=== PATIENT | female | born 1995 | race Caucasian/White ===

== ENCOUNTER 2021-10-07 13:25 | Emergency (ER) | payer MEDICAID, SELFPAY ==
[2021-10-07 13:40] VITALS: BP 107/76; PULSE 102; RESP 18; TEMP 36.9; O2SAT 97; BMI 29.9
--- NOTE | 2021-10-07 14:03 | HMH.EDUTC ---
[facility] [place] Clinical Impression: UTI (urinary tract infection) Qualifiers: Urinary tract infection type: site unspecified Hematuria presence: without hematuria Qualified Code(s): N39.0 - Urinary tract infection, site not specified Disposition: Home, Self-Care Condition on Discharge: Good Instructions: DI for Urinary Tract Infection (UTI) Additional Instructions: *Increase fluids. Water not Soda or Tea *Start antibiotic immediately and be sure to take as ordered for the FULL length of time although you should start to see improvement over the next 48 hours *Pyridium as needed Remember this medication will turn your urine [place]. This is normal but it will stain what ever it gets on *You should not use Pyridium for more than 48 hours. If so , follow up with your primary physician to review urine culture and ensure that antibiotic is adequate for infection *Be SURE to follow up anytime for new or worsening symptoms with your family doctor. AND in 48 hours for urine culture results with your family doctor, if you do not have a doctor then you may call back to the [facility] for urine culture results and further treatment. We do recommend that you choose and establish care with a Primary Care Physician. AND follow up with them in 10-14 days to repeat UA to ensure infection is resolved and blood no longer present *Be sure to let your PCP know that we sent urine cultures from the [facility] so they can follow up to ensure that you area the on the correct antibiotic Call your doctor office and make appointment for 48 hours (2 days from today) to follow up and get the results of your urine culture and further treatment Prescriptions: Sulfamethoxazole/Trimethoprim [Bactrim DS tablet] 1 each PO BID 3 Days #6 tab Transmission Status: Pending to [facility] #[id number] Phenazopyridine HCl [Pyridium 200mg Tablet] 200 pow PO TID #6 tab Transmission Status: Pending to [facility] #[id number] Referrals: Provider,Referral, MD [Primary Care Provider] - As needed Time of Disposition: 14:16 Medical Decision Making - Byron Inquiry Pt receiving controlled substance: No Byron was queried for this patient: No Vital Signs: 10/07/21 13:40 Temperature 98.4 F Temperature Source Oral Pulse Rate [Right Brachial] 102 H Respiratory Rate 18 Blood Pressure [Right Arm] 107/76 L Blood Pressure Mean [Right Arm] 86 Blood Pressure Source [Right Arm] Automatic Cuff Blood Pressure Position [Right Arm] Sitting 02 Sat by Pulse Oximetry 97 Oxygen Delivery Method Room Air - Lab Data Lab results reviewed: Yes: I reviewed the patient's lab results. [facility] [place] - General Stated complaint: possible bladder infection Time Seen by Provider: 10/07/21 14:03 Mode of Arrival: Ambulatory Source of Information: Patient Limitations: No Limitations Description of Symptoms (Recalled from Triage Doc. by RN): PATIENT C/O LOWER BACK AND BLADDER PAIN X 4 DAYS HEENT Symptoms (Recalled from RN notes): No Resp Symptoms (Recalled from RN notes): No Skin Symptoms (Recalled from RN notes): No MS Symptoms (Recalled from RN notes): No Functional Status (Recalled from RN notes): WNL - History of Present Illness Provider Complaint: Patient states that she has been having pain in her left low back area and pressure and burning with urination on and off and feeling of urgency and frequency State that she does get frequent UTI and feels like it does when she has one so she came in to get checked - Related Data Previous Rx's Medication Instructions Recorded Phenazopyridine HCl [Pyridium 200 pow PO TID #6 tab 10/07/21 200mg Tablet] Sulfamethoxazole/Trimethoprim 1 each PO BID 3 Days #6 tab 10/07/21 [Bactrim DS tablet] Allergies Allergy/AdvReac Type Severity Reaction Status Date / Time Penicillins Allergy Verified 10/07/21 13:54 - Worker's Comp Is this a Worker's Comp case?: No [facility] History - Hepatitis A Screen Attestation statement:: This patie
[2021-10-07 14:19] VITALS: BP 107/76; PULSE 102; RESP 18; TEMP 36.9; O2SAT 97
[2021-10-07 14:19] LABS: Apearance,Urine Clear (Clear); Color,Urine Dark Yellow (Yellow)
[2021-10-07 14:21] LABS: Bilirubin,Urine Negative (Negative); Blood, Urine Trace (Negative); Glucose,Urine (UA) Negative (Negative); Ketones,Urine TRACE (Negative); Protein,Urine Trace (Negative); Urobilinogen,Urine 1 EU/dl (0.2)
[2021-10-07 14:22] LABS: UTC Leukocyte Esterase,Urine Negative (Negative); UTC Nitrate,Urine Negative (Negative)
== END 2021-10-07 14:28 | disposition home or self-care (01) ==
PROVIDERS: Emergency Provider Nurse Practitioner
DX: N39.0 Urinary tract infection, site not specified (principal)
CPT/HCPCS: 81003; 99212; G0463

== ENCOUNTER 2024-07-03 02:06 | Emergency (ER) | payer MEDICAID, SELFPAY ==
--- NOTE | 2024-07-03 02:09 | ED_ITS ---
Discharge Plan Disposition Patient Disposition: Home, Self-Care Prescriptions Prescriptions: New azithromycin 250 mg tablet See Rx Instructions .ROUTE .COMPLEX Qty: 6 0RF Rx Instructions: For 250 mg dose pack: take 500 mg today (day 1), then 250 mg for 4 days (days 2-5) No Action phenazopyridine 200 MG tablet 200 pow PO TID Qty: 6 0RF sulfamethoxazole-trimethoprim 1 EACH tablet 1 each PO BID 3 Days Qty: 6 0RF Referrals Follow up/Referrals: Provider,Referral, MD [Primary Care Provider] - See instructions Activity Restrictions/Add. Instructions Additional Instructions/Restrictions: Please take antibiotics and use eardrops as prescribed. Please follow-up with your primary care provider. Please return to the emergency department if you develop any new or worsening symptoms or become concerned for your health. Clinical Impressions Clinical Impression: Otitis media Qualifiers: Chronicity: acute Laterality: left Bullous myringitis Qualifiers: Laterality: left Qualified Code(s): H73.012 - Bullous myringitis, left ear Print Language Print Language: Slovak Discharge ED Provider: Tyrell Paredes General Adult HPI General Chief complaint: Ear Stated complaint: left ear pain Time Seen by Provider: 07/03/24 02:09 History of Present Illness HPI narrative: 29-year-old female without significant past medical history presents for left ear pain. Is been ongoing for the last several days and is getting worse. She reports of decreased hearing. Denies any fever. Denies history of ear infections. Related Data Previous Rx's ?Medication ?Instructions ?Recorded phenazopyridine 200 mg tablet 200 pow PO TID #6 tabs 10/07/21 sulfamethoxazole 800 1 each PO BID 3 days #6 tabs 10/07/21 mg-trimethoprim 160 mg tablet azithromycin 250 mg tablet See Rx Instructions PO .COMPLEX #6 07/03/24 tabs Allergies Allergy/AdvReac Type Severity Reaction Status Date / Time Penicillins Allergy Verified 10/07/21 13:54 [facility] Disclaimer: The information contained in this section may have been updated after the patient was seen, as this information can be updated by other users. Social History Smoking Status: Unknown if ever smoked alcohol intake: never current occupational status: other Travel in the last 8 weeks: None Have you lived/traveled outside [place] in past 30 days?: No Contact w/someone who lives/traveled outside [place] past 30 days?: No Exposure to someone with infectious disease in past 14 days?: No Do you have a fever (greater than 100.4 F or 38 C)?: No Have you tested positive for COVID-19: No Exposed to someone with COVID-19 in past 14 days?: No Do you have a sore throat?: No Do you have a cough?: No Do you have any weakness?: No Do you have any diarrhea?: No Are you experiencing any unusual bleeding?: No Do you have any muscle aches/pain?: No Do you have any abdominal pain?: No Are you experiencing loss of taste or smell?: No ROS Obtained: Yes All systems reviewed & no additional complaints except as documented Physical Exam General General appearance: alert and in no apparent distress Head Head exam: atraumatic and normocephalic Eye Eye exam: Present normal appearance, PERRL and EOMI ENT ENT exam: Present normal oropharynx and normal external ear exam; Absent TM's normal bilaterally (Right TM normal. Left TM is erythematous with some bubbling, opaque fluid behind and some irritation of the canal.) Neck Neck exam: Present normal inspection and full ROM Chest Chest inspection: Present normal inspection and symmetric chest wall rise; Absent tenderness Respiratory Respiratory exam: Present normal lung sounds bilaterally; Absent respiratory distress Cardiovascular Cardiovascular exam: Present regular rate and normal rhythm Abdominal Exam Abdominal exam: Present soft; Absent distention, tenderness or guarding Extremities Exam Extremities exam: Present normal inspection; Absent edema or joint swelling Back Exam Back exam: Present normal inspection; Absent tenderness Neurological Exam Neurological exam: Present alert and oriented X3; Absent motor sensory deficit Psychiatric Psychiatric exam: Present normal affect and normal mood Skin Skin exam: Present warm, dry and normal color Lymphatic Lymphatic Findings: no adenopathy Medical Decision Making Medical Records Medical records reviewed: Yes I reviewed the patient's medical records. Screening: Per USPSTF and CDC recommendations, given the prevalence of disease in our region, it is our hospital?s policy to screen for HIV and viral Hepatitis for all patients aged 18 and over and those with ongoing risk factors. Byron Inquiry Pt receiving controlled substance: No Byron was queried for this patient: No Vital Signs: 07/03/24 02:11 07/03/24 02:35 Temperature 97.5 F L 97.5 F L Temperature Source Oral Oral Pulse Rate 78 Pulse Rate [Apical] 91 H Respiratory Rate 18 18 Blood Pressure 140/85 Blood Pressure [Right Arm] 150/92 H Blood Pressure Mean [Right Arm] 111 Blood Pressure Source Automatic Cuff Blood Pressure Position Sitting 02 Sat by Pulse Oximetry 100 Oxygen Delivery Method Room Air Room Air Lab Data Lab results reviewed: Yes I reviewed the patient's lab results. Orders (Tests/Meds): ED MEDICATIONS Discontinued Medications Generic Name Dose Route Start Last Admin Trade Name Andrew PRN Reason Stop Dose Admin Acetaminophen 1,000 mg 07/03/24 02:28 07/03/24 02:33 Acetaminophen 500mg Tab PO 07/03/24 02:29 1,000 mg ONCE ONE Administration Azithromycin 500 mg 07/03/24 02:16 07/03/24 02:23 Azithromycin 250mg Tablet PO 07/03/24 02:17 500 mg ONCE ONE Administration Ibuprofen 600 mg 07/03/24 02:28 07/03/24 02:32 Ibuprofen 600 Mg Tablet PO 07/03/24 02:29 600 mg ONCE ONE Administration Neomycin/Polymyxin/Hydrocortisone 10 ml 07/03/24 02:16 07/03/24 02:23 Tfoltote-Hpoxexyov-Vn Otic Susp 10ml OT 07/03/24 02:17 10 ml ONCE ONE Administration Medical Decision Narrative: 29-year-old female without significant past medical history presents for left ear pain. History was obtained via interactive discussion with patient. On arrival, patient is [afebrile, hemodynamically stable, satting appropriately, alert, oriented x4, GCS 15], moving all extremities spontaneously. Full physical exam performed and significant for abnormal left ear findings as documented above Differential includes but is not limited to otitis media, otitis externa, bullous myringitis, mastoiditis. Patient was given Tylenol, ibuprofen, neomycin polymyxin otic drops, azithromycin (patient has penicillin allergy). Patient likely has bullous pharyngitis, but may also have otitis media as well. Patient was discharged in stable condition with prescription for azithromycin. Procedures Risk/Benefits of Procedure(s) Were Explained: Yes Critical Care Critical Care Time Critical Care Time: No
[2024-07-03 02:11] VITALS: BP 150/92; PULSE 91; RESP 18; TEMP 36.4; O2SAT 100; BMI 25.1
[2024-07-03] MEDS: NEOMYCIN-POLYMYXIN-HC OTIC SUSP 10ML 10 ML OT (02:23)
[2024-07-03] MEDS: AZITHROMYCIN 250MG TABLET 500 MG PO (02:23)
[2024-07-03] MEDS: IBUPROFEN 600 MG TABLET PO (02:32)
[2024-07-03] MEDS: ACETAMINOPHEN 500MG TAB 1000 MG PO (02:33)
[2024-07-03 02:35] VITALS: BP 140/85; PULSE 78; RESP 18; TEMP 36.4; O2SAT 97
== END 2024-07-03 02:38 | disposition home or self-care (01) ==
PROVIDERS: Emergency Provider Emergency Medicine
DX: H73.012 Bullous myringitis, left ear (principal)
CPT/HCPCS: 99283